=== PATIENT | female | born 1965 | race Two or more races ===

== ENCOUNTER 2020-11-02 20:34 | Emergency (ER) | payer OTHER ==
[~2020-11-02] VITALS: Ht 165.1 cm; Wt 78.5 kg
--- NOTE | 2020-11-02 20:40 | NUR ---
Dr. Snyder at bedside for MSE.
[2020-11-02] MEDS ORDERED: predniSONE 20 MG TABLET PO ONE (20:45)
[2020-11-02] MEDS ORDERED: diphenhydrAMINE 50 MG CAPSULE PO ONE (20:45)
[2020-11-02] MEDS ORDERED: diphenhydrAMINE 50 MG CAPSULE ONE (20:57)
[2020-11-02] MEDS ORDERED: predniSONE 20 MG TABLET ONE (20:57)
[2020-11-02 21:03] LABS: BASOPHILS # (AUTO) 0.1 K/uL (0.0-8.0); BASOPHILS % (AUTO) 0.6 % (0.0-2.0); EOSINOPHILS # (AUTO) 0.6 K/uL (0.0-0.7); EOSINOPHILS % (AUTO) 5.3 % (0.0-7.0); HEMATOCRIT 42.4 % (31.2-41.9); HEMOGLOBIN 14.2 g/dL (10.9-14.3); LYMPHOCYTES # (AUTO) 4.8 K/uL (20.0-40.0); LYMPHOCYTES % (AUTO) 40.4 % (20.5-51.5); MEAN CORPUSCULAR HEMOGLOBIN 31.5 uug (24.7-32.8); MEAN CORPUSCULAR HGB CONC 33 g/dL (32.3-35.6); MEAN CORPUSCULAR VOLUME 94.4 fL (75.5-95.3); MONOCYTES # (AUTO) 0.9 K/uL (2.0-10.0); MONOCYTES % (AUTO) 7.3 % (0.0-11.0); NEUTROPHILS # (AUTO) 5.5 K/uL (1.8-8.9); NEUTROPHILS % (AUTO) 46.4 % (38.5-71.5); PLATELET COUNT (AUTO) 251 K/uL (179-408); RED BLOOD CELL COUNT(AUTO) 4.49 MIL/uL (3.63-4.92); WHITE BLOOD COUNT (AUTO) 11.8 K/uL (3.8-11.8)
[2020-11-02 21:08] LABS: CREATININE 0.7 mg/dL (0.6-1.3); POTASSIUM 3.7 mmol/L (3.5-5.1)
[2020-11-02] MEDS ORDERED: methylPREDNISolone SOD SUCC 125 MG/2 ML VIAL IV ONE (21:15)
[2020-11-02] MEDS ORDERED: methylPREDNISolone SOD SUCC 125 MG/2 ML VIAL ONE (21:18)
[2020-11-02] MEDS ORDERED: IV NORMAL SALINE 250 ML IV ONE (21:55)
[2020-11-02] MEDS ORDERED: IOHEXOL 300MG/ML 100 ML INFUS..BTL ONE (21:55)
[2020-11-02] MEDS ORDERED: SWABABLE VALVE TRANSFER SET EA MC ONE (21:55)
--- NOTE | 2020-11-02 22:00 | NUR ---
Pt out of ER for CT.
--- NOTE | 2020-11-02 22:30 | NUR ---
Patient back to ER from CT.
[2020-11-02] MEDS ORDERED: PRED20TA PO (22:58)
--- NOTE | 2020-11-02 23:08 | NUR ---
Patient discharged to home in stable condition. Written and verbal after care instructions given. Patient verbalizes understanding of instructions. Stressed follow up or return to ER for worsening s/s. Patient out of ER via wheelchair, no acute signs of distress, VSS, all belongings taken, IV site discontinued, provided with copies of CT results, CD, and lab results, assisted in patient transfer to car, no falls noted, to be driven home via private vehicle by son.
[2020-11-02 23:09] VITALS: BP 135/75
== END 2020-11-02 23:09 | disposition home or self-care (01) ==
LOC: ER 20:36
DX: T81.89XA Other complications of procedures, not elsewhere classified, initial encounter (principal); K21.9 Gastro-esophageal reflux disease without esophagitis; M25.462 Effusion, left knee; M25.562 Pain in left knee; Z88.2 Allergy status to sulfonamides; Z88.8 Allergy status to other drugs, medicaments and biological substances; Z88.0 Allergy status to penicillin; Z91.013 Allergy to seafood; L29.9 Pruritus, unspecified
CPT/HCPCS: 36415; 73701; 80048; 85025; 85651; 96374; 99285; J2930; J7512; Q0163; Q9967; A4663; J7050

== ENCOUNTER 2021-05-22 15:29 | Emergency (ER) | payer OTHER ==
[~2021-05-22] VITALS: Ht 165.1 cm; Wt 78.5 kg
[~2021-05-22 15:29] MED LIST: PRED20TA PO
--- NOTE | 2021-05-22 16:43 | NUR ---
Pending MD evaluation, patient is seen resting comfortably on NAD. jin
--- NOTE | 2021-05-22 17:14 | NUR ---
[email or web address], medical screening exam in progress
--- NOTE | 2021-05-22 17:25 | NUR ---
Pending ultrasound@this time, comfort and safety measures maintained. Patient ambulates with steady gait from ER bed 4b to bathroom.
[2021-05-22] MEDS ORDERED: MORPHINE SULFATE 4 MG/1 ML DISP.SYRIN IM ONE ×2 (17:30→20:45)
[2021-05-22] MEDS ORDERED: KETOROLAC TROMETHAMINE 60 MG INJ IM ONE ×2 (17:30→18:07)
[2021-05-22] MEDS ORDERED: MORPHINE SULFATE 4 MG/1 ML DISP.SYRIN ONE ×2 (18:07→20:55)
--- NOTE | 2021-05-22 18:13 | NUR ---
Patient is resting comfortably on gurney with eyes closed, warm blanket on, for disposition, NAD.
[2021-05-22] MEDS ORDERED: diphenhydrAMINE 50 MG/1 ML VIAL IM ONE (20:45)
[2021-05-22] MEDS ORDERED: diphenhydrAMINE 50 MG/1 ML VIAL ONE (20:55)
--- NOTE | 2021-05-22 20:57 | NUR ---
PROVIDED PT WITH DINNER. RESTING COMFORTABLY IN BED. NO DISTRESS.
[2021-05-22] MEDS ORDERED: NAPR-1164 PO (20:58)
[2021-05-22] MEDS ORDERED: HYDR-3972 PO (20:58)
[2021-05-22] MEDS ORDERED: NALO4SPR NS (20:58)
--- NOTE | 2021-05-22 21:36 | NUR ---
Patient discharged to home in stable condition. No changes in LOC, denies any pain/discomfort upon discharge. Written and verbal after care instructions given. Patient verbalizes understanding of instructions. Stressed follow up or return to ER for worsening s/s. Steady gait, picked up by son.
[2021-05-22 21:37] VITALS: BP 134/87
== END 2021-05-22 21:32 | disposition home or self-care (01) ==
LOC: ER 15:29
DX: G89.29 Other chronic pain (principal); M54.42 Lumbago with sciatica, left side; K21.9 Gastro-esophageal reflux disease without esophagitis; Z88.2 Allergy status to sulfonamides; Z91.010 Allergy to peanuts; Z88.0 Allergy status to penicillin; Z91.013 Allergy to seafood; Z98.890 Other specified postprocedural states
CPT/HCPCS: 93971; 96372 ×2; 99284; J1200; J1885; J2270 ×2; A4663

== ENCOUNTER 2021-09-07 16:08 | Emergency (ER) | payer OTHER ==
[~2021-09-07] VITALS: Ht 165.1 cm; Wt 78.5 kg
[~2021-09-07 16:08] MED LIST changes: +HYDR-3972 PO; +NALO4SPR NS; +NAPR-1164 PO
--- NOTE | 2021-09-07 17:00 | NUR ---
PT IS IN ROOM #1A. DR MAGUIRE EVALUATED THE PT.
[2021-09-07 17:36] LABS: HEMATOCRIT 42.5 % (31.2-41.9); MEAN CORPUSCULAR HEMOGLOBIN 32.1 uug (24.7-32.8); MEAN CORPUSCULAR VOLUME 94.4 fL (75.5-95.3); PLATELET COUNT (AUTO) 234 K/uL (179-408)
[2021-09-07 17:40] LABS: CREATININE 0.7 mg/dL (0.6-1.3); POTASSIUM 4.2 mmol/L (3.5-5.1)
[2021-09-07 17:45] LABS: BILIRUBIN,DIRECT 0.1 mg/dL (0.0-0.2); BILIRUBIN,TOTAL 0.3 mg/dL (0.2-1.0); TOTAL PROTEIN, SERUM 7.4 g/dL (6.4-8.2)
[2021-09-07] MEDS ORDERED: MORPHINE SULFATE 2 MG/1 ML DISP.SYRIN IV ONE (18:15)
[2021-09-07] MEDS ORDERED: ONDANSETRON 4 MG/2 ML VIAL IV ONE (18:15)
[2021-09-07] MEDS ORDERED: IV NORMAL SALINE 1000 ML BAG IV ONE (18:15)
[2021-09-07] MEDS ORDERED: MORPHINE SULFATE 2 MG/1 ML DISP.SYRIN ONE (18:32)
[2021-09-07] MEDS ORDERED: ONDANSETRON 4 MG/2 ML VIAL ONE (18:32)
[2021-09-07] MEDS ORDERED: METO-295 PO (19:26)
[2021-09-07] MEDS ORDERED: ACET-2154 PO (19:26)
[2021-09-07] MEDS ORDERED: METOCLOPRAMIDE HCL 10 MG/2 ML VIAL IV ONE (19:45)
[2021-09-07] MEDS ORDERED: METOCLOPRAMIDE HCL 10 MG TABLET PO ONE (20:00)
--- NOTE | 2021-09-07 20:00 | NUR ---
Note undone in EDM - 09/07/21 at 2000 by FILIPPO Patient discharged to home in stable condition. Written and verbal after care instructions given. Patient verbalizes understanding of instructions. Stressed follow up or return to ER for worsening s/s. Patient out of ER with steady gait with cane, no acute signs of distress, VSS, all belongings taken, provided with copies of labs and ct result, to be driven home by son via private vehicle.
[2021-09-07] MEDS ORDERED: METOCLOPRAMIDE HCL 10 MG TABLET ONE (20:04)
--- NOTE | 2021-09-07 20:48 | NUR ---
Patient discharged to home in stable condition. Written and verbal after care instructions given. Patient verbalizes understanding of instructions. Stressed follow up or return to ER for worsening s/s. Patient out of ER with steady gait with cane, no acute signs of distress, VSS, all belongings taken, IV site discontinued, provided with copies of labs and ct result, to be driven home by son via private vehicle.
[2021-09-07 20:51] VITALS: BP 148/78
== END 2021-09-07 20:52 | disposition home or self-care (01) ==
LOC: ER 16:11
DX: R51.9 Headache, unspecified (principal); Z82.49 Family history of ischemic heart disease and other diseases of the circulatory system; Z91.010 Allergy to peanuts; Z88.0 Allergy status to penicillin; Z91.013 Allergy to seafood; J45.909 Unspecified asthma, uncomplicated; Z88.2 Allergy status to sulfonamides; M54.30 Sciatica, unspecified side; J32.8 Other chronic sinusitis
CPT/HCPCS: 36415; 70450; 80048; 80076; 85025; 96361; 96374; 96375; 99284; J2270; J2405; A4663; J8597